=== PATIENT | female | born 1995 | race Caucasian/White ===

== ENCOUNTER 2021-01-29 18:38 | Emergency (ER) | payer OTHER, SELFPAY ==
[2021-01-29 20:11] VITALS: BP 123/64; PULSE 100; RESP 18; TEMP 37.1; O2SAT 98; BMI 23.2
[2021-01-29 21:42] LABS: COVID-19 Test Negative (Negative)
--- NOTE | 2021-01-29 21:59 | ED.GENADULT ---
HPI - General Adult General Chief complaint: Upper Respiratory Symptoms Stated complaint: headache Time Seen by Provider: 01/29/21 21:31 Source: patient Mode of arrival: ambulatory History of Present Illness HPI narrative: 25-year-old female with history of asthma presents with cough, congestion, subjective fevers, negative COVID swab yesterday, body aches, nausea, as well as urinary burning. Patient states that she does not believe in getting the COVID-19 vaccine and that she has recently visited her grandmother who is known to have COVID-19. Related Data Allergies Allergy/AdvReac Type Severity Reaction Status Date / Time aspirin Allergy Anaphylaxis Verified 01/29/21 20:11 peanut Allergy Rash Verified 01/29/21 20:11 Review of Systems Review of Systems: Pertinent positives and negatives as stated in HPI 10 point review of systems is otherwise negative. PMFSH Past Medical History Source: nursing notes reviewed Medical History Asthma Social History Social History Advance Directives: No Physical Exam Vital Signs: Vital Signs: Last Vital Signs Temp 98.8 F 01/29/21 20:11 Pulse 100 01/29/21 20:11 Resp 18 01/29/21 20:11 BP 123/64 01/29/21 20:11 Pulse Ox 98 01/29/21 20:11 Body Mass Index 23.2 VITAL SIGNS: Reviewed. GENERAL: Well developed, well nourished, in no acute distress. HEAD: Normocephalic/atraumatic EYES: PERRLA, EOMI NOSE: Nasal congestion OROPHARYNX: no oral lesions noted, posterior pharynx clear and non-erythematous without noted tonsillar enlargement/erythema/exudates NECK: Supple, no adenopathy LUNGS: Normal breath sounds, no wheezing noted. No adventitious sounds or accessory muscle use. SpO2<98> CARDIOVASCULAR: Regular rate and rhythm without noted murmurs, no JVD or lower extremity edema. ABDOMEN: Soft, non-tender, non-distended with bowel sounds. NEUROLOGIC: Alert and oriented x 4. Strength and sensation to light touch were grossly intact x 4. Course Course Course Narrative: This is a 25-year-old female with history and clinical presentation most consistent with seasonal allergies, nasal congestion as well as sinusitis and patient is noted to be tolerating oral intake currently and on review of investigations is negative for COVID-19. Review of all investigations negative for acute findings, patient is tolerating oral intake, all results were discussed with patient at bedside. Patient was discharged home in stable condition with instructions for allergy medication as well as [id number] Tylenol/ibuprofen for additional symptom relief. Medical Decision Making Lab Data Labs: Lab Results 01/29/21 01/29/21 01/29/21 Range/Units 21:17 22:26 22:26 Urine Color YELLOW Urine Appearance CLEAR Urine pH 6.5 (5.0-8.0) Ur Specific [place] 1.010 (1.005-1.025) Urine Protein NEG (NEG-TRACE) MG/DL Urine Glucose (UA) NEG (NEG) MG/DL Urine Ketones NEG (NEG) MG/DL Urine Blood NEG (NEG) Urine Nitrite NEG (NEG) Ur Leukocyte Esterase NEG (NEG) Urine Test NEGATIVE (NEGATIVE) COVID-19 (GABINO) Negative (Negative) COVID-19 Clin Com See Note Discharge Plan Discharge Clinical Impression: Acute seasonal allergic rhinitis, Viral syndrome Patient Disposition: Home, Self-Care Instructions: Viral Syndrome (ED), Allergic Rhinitis (ED), Postnasal Drip (DC), Fluticasone (Into the nose), Loratadine (By mouth) Additional Instructions: 1. Se recomienda comenzar con marjorie combinaci?n de Claritin (loratadina) de venta laila con Flonase para el control de las alergias estacionales. 2. Tambi?n recomiende el uso de Tylenol / ibuprofeno de venta laila seg?n sea necesario para el dolor de garganta, jean pierre corporales, temperaturas superiores a 100,4?C. 3. Jesse un seguimiento con pederson proveedor de atenci?n primaria llamando al consultorio por la ma?garima y estableciendo marjorie krystyna para marjorie reevaluaci?n. Regrese a la aurea de emergencias por cualquier empeoramiento brayan de rehan s?ntomas. Referrals: Physician,Unknown [Primary Care Provider] - 2 days Print Language: Tajik
[2021-01-29 22:35] LABS: Glucose Urine UA NEG (NEG); Leukocyte Esterase Urine NEG (NEG); Nitrite Urine NEG (NEG); PH 6.5 (5.0-8.0); Urine Blood NEG (NEG); Urine Ketones NEG (NEG); Urine Protein NEG (NEG-TRACE)
[2021-01-29 22:40] LABS: Appearance Urine CLEAR; Color Urine YELLOW; UPreg QC Valid YES; Urine Pregnancy NEGATIVE (NEGATIVE)
[2021-01-29] MEDS: Acetaminophen 325 MG TABLET 975 MG PO (22:51)
== END 2021-01-29 23:32 | disposition home or self-care (01) ==
PROVIDERS: Emergency Provider Student in an Organized Health Care Education/Training Program
DX: B34.9 Viral infection, unspecified (principal); Z20.822 Contact with and (suspected) exposure to COVID-19; J30.9 Allergic rhinitis, unspecified; R51.9 Headache, unspecified
CPT/HCPCS: 36415; 81003; 81025; 87635; 99283; 99284

== ENCOUNTER 2022-02-09 10:10 | Emergency (ER) | payer OTHER, SELFPAY ==
--- NOTE | ~2022-02-09 | XR_ITS ---
EXAMINATION: XR FINGER, LEFT CLINICAL INFORMATION: Slammed fingers in door with pain in index finger COMPARISON: Left finger TECHNIQUE: Three views of the left index. FINDINGS: There is soft tissue laceration along the distal index finger without any fracture or dislocation. Rest of the left hand and left fingers and appears unremarkable. The soft tissues are normal. XR/XR finger LT min 2V IMPRESSION: Soft tissue laceration distal index finger without acute fracture or dislocation.
[2022-02-09 10:41] VITALS: BP 107/60; PULSE 75; RESP 16; TEMP 36.9; O2SAT 98; BMI 26.0
[2022-02-09] MEDS: Ibuprofen 800 MG TABLET PO (11:06)
--- NOTE | 2022-02-09 11:17 | ED_ITS ---
HPI - Extremity Injury (Upper) General Chief Complaint: Extremity Injury, Upper Stated Complaint: slammed finger in door missing nail Time Seen by Provider: 02/09/22 10:16 Source: patient and family Mode of arrival: ambulatory Limitations: language barrier ( Swedish-speaking) History of Present Illness HPI narrative: 26-year-old female presenting to the ED with complaints of left index finger at the distal aspect pain and her nail broke off partially after she accidentally jammed her finger in a door prior to arrival. She reports she is up-to-date on tetanus. She denies any paresthesias or any other injuries complaints or concerns at this time. 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) Other Extremity Injury: left: fingers (index) Other injuries: none Place: home Severity: moderate Relieving factors: none Exacerbating factors: movement of extremity ( and palpation) Context: crush Associated symptoms: denies other symptoms Treatments prior to arrival: bandage Related Data Previous Rx's Medication Instructions Recorded cephalexin 500 mg capsule 500 mg PO Q6H 10 days #40 caps 02/09/22 ibuprofen 800 mg tablet 800 mg PO Q8H PRN pain #14 tabs 02/09/22 Allergies Allergy/AdvReac Type Severity Reaction Status Date / Time aspirin Allergy Anaphylaxis Verified 01/29/21 20:11 peanut Allergy Rash Verified 01/29/21 20:11 Review of Systems Review of Systems: Constitutional : No Weight loss, No Fever, No Chills, No Night Sweats, No Fatigue, No Malaise ENT/Mouth : No Hearing loss, No Ear Pain, No Nasal Congestion, No Sinus Pain, No Hoarseness, No sore throat, No Rhinorrhea, No Swallowing Difficulty Eyes: No Eye Pain, No Swelling, No Redness, No Foreign Body, No Discharge, No Vision Changes Cardiovascular : No Chest Pain, No SOB, No Dyspnea on Exertion, No Orthopnea, No Edema, No Palpitations Respiratory : No Cough, No Sputum, No Wheezing, No Smoke Exposure, No Dyspnea Gastrointestinal : No Nausea, No Vomiting, No Diarrhea, No Constipation, No abdominal Pain, No Hematochezia, No Melena Genitourinary : no irregular bleeding, No Dysuria, No Urinary Frequency, No Hematuria, No Urinary Incontinence, No Urgency, No Flank Pain, No Urinary Flow Changes, No Hesitancy Musculoskeletal : + left index finger joint pain With partial nail avulsion, No Myalgias, No Joint Swelling Skin : No Skin Lesions, No rash Neuro : No Weakness, No Numbness, No Paresthesias, No Loss of Consciousness, No Dizziness, No Headache Psych : No Anxiety/Panic, No Depression, No SI/HI/AH/VH, No Social Issues, Heme/Lymph: No Bruising, No Bleeding,No Lymphadenopathy Endocrine : No Polyuria, No Polydipsia, No Temperature Intolerance Yes all other systems are reviewed and are negative [facility] Past Medical History Attestation statement: The following information was validated with the patient. Source: old records reviewed and nursing notes reviewed Medical History Asthma Social History Social History Advance Directives: No Advance Directives Information Provided: No Physical Exam Vital Signs: Vital Signs: Last Vital Signs Temp 98.4 F 02/09/22 10:41 Pulse 75 02/09/22 10:41 Resp 16 02/09/22 10:41 BP 107/60 02/09/22 10:41 Pulse Ox 98 02/09/22 10:41 O2 Del Method 02/09/22 10:41 BMI result Body Mass Index 26.0 vital signs have been reviewed as normal and appeared to be correct. Blood pressure normal Heart rate normal. Respiration rate normal. Temperature normal. Oxygen saturation normal. Appearance: Alert. Oriented X3. No acute distress. Head: Normal external exam. Normocephalic. Atraumatic. Eyes: PERRLA. EOMI. Conjunctiva and sclera normal. Eyelids normal. ENT: Pharynx normal. Uvula midline. Moist mucous membranes. Neck: Normal inspection. Neck supple. FROM. CVS: Normal heart rate and rhythm. Respiratory: No respiratory distress. Painless inspiration. Skin: Skin warm and dry. Normal skin color. Normal skin turgor. No rashes/lesions/lacerations noted. Extremities: to left index finger patient has tenderness palpation to the distal aspect of the finger/ tip with a partial nail avulsion. Nail bed is intact. No active bleeding or foreign bodies noted. No lacerations noted. No obvious ligamentous or tendon injury noted. No nerve injury noted. She has full range of motion of all fingers. Otherwise all other extremities exhibit normal range of motion nontender. Neuro: Oriented X 3. No motor deficit. No sensory deficit. Reflexes normal. Normal steady gait. No focal neuro deficits noted. Vascular: + radial pulses/+ 2 distal pedal pulses/+2 dorsalis pedis b/l. Normal cap refill. No cyanosis noted to upper extremity nails and lower extremity toes nails. Course Course Course Narrative: X-ray negative for fractures or any other acute processes. Will treat symptomatically with antibiotics and ibuprofen I also placed bacitracin after I cleaned the partial nail avulsion and place the non adherent dressing instructions return if any new or worsening symptoms follow up with primary care provider. Patient understands agrees with this plan. MDM - Extremity Injury (Upper) Medical Records Attestation: I reviewed the patient's medical records. Imaging Data Left index finger x-ray: Attestation: I personally reviewed and interpreted this imaging study as follows: Radiologist's impression: Dr. Corbett send all wet reading due to our PACS system is down and he reported that soft tissue swelling of index finger no fracture noted. Discharge Plan Discharge Clinical Impression: Sprain of left index finger, Nail avulsion, finger Patient Disposition: Home, Self-Care Instructions: Jammed Finger (ED), Finger Sprain (ED), Nail Avulsion (ED) Prescriptions: New cephalexin 500 mg capsule 500 mg PO Q6H 10 Days Qty: 40 0RF ibuprofen 800 mg tablet 800 mg PO Q8H PRN (Reason: pain) Qty: 14 0RF Referrals: Physician,Unknown J [Primary Care Provider] - 2 days (your pcp)
== END 2022-02-09 11:30 | disposition home or self-care (01) ==
PROVIDERS: Emergency Provider Emergency Medicine
DX: S63.611A Unspecified sprain of left index finger, initial encounter (principal); S61.311A Laceration without foreign body of left index finger with damage to nail, initial encounter; W23.1XXA Caught, crushed, jammed, or pinched between stationary objects, initial encounter; Y93.89 Activity, other specified; Y92.810 Car as the place of occurrence of the external cause; Y99.9 Unspecified external cause status
CPT/HCPCS: 73140; 99283

== ENCOUNTER 2022-02-20 12:47 | Emergency (ER) | payer OTHER, SELFPAY ==
[2022-02-20 13:01] VITALS: BP 104/64; PULSE 84; RESP 18; TEMP 37.2; O2SAT 100; BMI 25.9
--- NOTE | 2022-02-20 13:46 | ED_ITS ---
HPI - General Adult General Chief complaint: Skin/Abscess/Foreign Body Stated complaint: Rash on legs Time Seen by Provider: 02/20/22 13:46 Source: patient Mode of arrival: ambulatory Limitations: no limitations History of Present Illness HPI narrative: Patient is a 26 year old female presenting to the emergency department today with a rash on both of her legs that itches. Patient states that a few days ago, she was bit by mosquitoes and has been itching ever since. Patient denies any dizziness, lightheadedness, abdominal pain, nausea, vomiting, fever, chills, blurry vision, double vision, loss of vision, chest pain, difficulty breathing, shortness of breath, back pain, night sweats, pain with urination, increased urinary frequency, increased urinary urgency, blood in her urine or stool, synco pe or a near syncopal episode, recent trauma or falls, bowel incontinence, bladder incontinence, bowel retention, bladder retention, or any other complaints at this time. Onset (ago): day(s) Location: left, right and lower extremity Radiation: non-radiation Severity: mild Severity scale (1-10): 2 Pain Consistency: constant Relieving factors: none Exacerbating factors: none Associated symptoms: rash Treatments prior to arrival: none Related Data Previous Rx's Medication Instructions Recorded cephalexin 500 mg capsule 500 mg PO Q6H 10 days #40 caps 02/09/22 ibuprofen 800 mg tablet 800 mg PO Q8H PRN pain #14 tabs 02/09/22 prednisone 20 mg tablet 20 mg PO DAILY 12 days #26 tabs 02/20/22 Allergies Allergy/AdvReac Type Severity Reaction Status Date / Time aspirin Allergy Anaphylaxis Verified 01/29/21 20:11 peanut Allergy Rash Verified 01/29/21 20:11 Review of Systems Constitutional: Constitutional: Reports no additional constitutional compla ints, Denies chills, Denies fever(s) and Denies night sweats Eyes: Eyes: Reports no additional eye complaints, Denies blurry vision, Denies change in vision, Denies diplopia, Denies eye discharge, Denies loss of vision and Denies eye pain ENT: Denies dizziness Cardiovascular: Cardiovascular: Reports no additional cardiovascular complaints, Denies chest pain, Denies lightheadedness, Denies Loss of Consciousness and Denies dyspnea Respiratory: Respiratory: Reports no additional respiratory complaints and Denies dyspnea Gastrointestinal: Gastrointestinal: Reports no additional gastrointestinal complaints, Denies abdominal pain, Denies melena, Denies hematochezia, Denies change in bowel habits and Denies change in stool character Genitourinary: Genitourinary: Denies hematuria, Denies urinary frequency, Denies dysuria, Denies urinary incontinence, Denies urinary hesitancy and Denies urinary urgency Musculoskeletal: Musculoskeletal: Reports no additional musculoskeletal complaints, Denies numbness and Denies tingling Integumentary/Breasts: Comments: bilateral lower leg rash and itching Neurologic: Denies dizziness, Denies loss of vision, Denies numbness and Denies tingling Psychiatric: Psychiatric: Reports no additional psychiatric complaints Endocrine: Endocrine: Reports no additional endocrine complaints Hematologic/Lymphatic: Hematologic/Lymphatic: Reports no additional hematologic/lymphatic complaints Allergic/Immunologic: Allergic/Immunologic: Reports no additional allergic/immunologic complaints PMFSH Past Medical History Attestation statement: The following information was validated with the patient. Source: old records reviewed Medical History Asthma Social History Social History Advance Directives: Yes Advance Directives Information Provided: Yes Advance Directives on File: No Physical Exam ED Vital Signs: Vital Signs - 24 hr 02/20/22 13:01 Temperature 98.9 F Pulse Rate 84 Respiratory Rate 18 Blood Pressure 104/64 Pulse Oximetry 100 Oxygen Delivery Method Room Air BMI result Body Mass Index 25.9 Const General: cooperative, no acute distress, alert and awake Nutritional Appearance: well nourished Orientation/consciousness: patient oriented x3 Limitations: no limitations [facility] Head: Yes normal to inspection and Yes atraumatic Ears: hearing grossly normal bilaterally and external ears normal General nose exam: Normal external nose present, no nasal discharge noted and no epistaxis Face and sinus: Yes normal facial exam, No abrasion and No laceration Mouth: Normal oral and palatal mucosa present, no drooling and no muffled voice Eyes General: appearance normal, both eyes and all related structures Periorbital: periorbital findings normal Eyelids: Yes eyelids normal Conjunctivae: conjunctivae normal Pupils: Equal, round and reactive pupils present EOM: EOMs intact bilaterally Neck Neck: Yes normal visual inspection, Yes full ROM and Yes no lymphadenopathy Chest Chest palpation & inspection: normal inspection of the chest Resp Effort & Inspection: normal respiratory effort and able to speak in complete sentences Auscultation: clear to auscultation bilaterally Cardio Rate: regular rate Rhythm: regular rhythm GI Inspection: Yes normal to inspection Skin Other: bilateral lower leg erythematous rash with minimal raised areas consistent with insect bites Neuro General: patient oriented x3 and moves all extremities Cranial nerves: Yes Equal, round and reactive pupils present Cognition (Neuro): normal cognition Motor exam (neuro): 5/5 motor strength present throughout Sensory Exam: Normal double simultaneous stimulation for sensation Coordination: [id number] test normal Extrem General: Yes normal to inspection, Yes full ROM and Yes capillary refill normal Psych Appearance: grossly normal Mental Status: mental status grossly normal Affect: normal affect Attitude: cooperative Thought process: Normal thought process present Thought content: Normal thought content present Insight: Good insight present (Psych) Medical Decision Making MDM Narrative Medical decision making narrative: Patient is a 26 year old female presenting to the emergency department today with bilateral lower leg itching. Patient's physical exam was as noted with bilateral lower leg erythema and a few raised areas consistent with insect bites and an overlying dermatitis. I explained my physical exam findings to the patient. I answered all questions asked by the patient. I stressed the importance of the patient taking her medication as prescribed. I stressed the importance of the patient following up with her primary care provider. I stressed the importance of the patient returning to the emergency department immediately if her symptoms were to worsen or if she were to develop any dizziness, shortness of breath, difficulty breathing, chest pain, blurry vision, loss of vision, nausea, vomiting, abdominal pain, fever, chills, back pain, or any other complaints. Patient verbalized agreement and understanding with this treatment plan and discharge. Differential Diagnosis Differential Diagnosis: dermatitis, insect bites Medical Records Medical records reviewed: Yes I reviewed the patient's medical records. Discharge Plan Discharge Clinical Impression: Dermatitis, Insect bite Patient Disposition: Home, Self-Care Instructions: Dermatitis (ED) Additional Instructions: STOP ITCHING IT. Follow up with your primary care provider. Return to the emergency department immediately if your symptoms worsen or if you develop any dizziness, shortness of breath, difficulty breathing, chest pain, blurry vision, loss of vision, nausea, vomiting, abdominal pain, fever, chills, back pain, or any other complaints. Prescriptions: New prednisone 20 mg tablet 20 mg PO DAILY 12 Days Qty: 26 0RF Rx Instructions: Take 3 tablets for 5 days THEN; Take 2 tablets for 4 days THEN; Take 1 tablet for 3 days No Action cephalexin 500 mg capsule 500 mg PO Q6H 10 Days Qty: 40 0RF ibuprofen 800 mg tablet 800 mg PO Q8H PRN (Reason: pain) Qty: 14 0RF Referrals: [facility] [place] [facility] [Provider Group] (Call to establish and follow up with a primary care provider. If you already have one, please follow up with them. ) [facility] [place] Primary Care, Eunice [Provider Group] (Call to establish and follow up with a primary care provider. If you already have one, please follow up with them. ) [facility] [place] Primary Care,Héctor [Provider Group] (Call to establish and follow up with a primary care provider. If you already have one, please follow up with them. ) Stand Alone Forms: Work/School Release Print Language: Persian
== END 2022-02-20 14:23 | disposition home or self-care (01) ==
PROVIDERS: Emergency Provider Emergency Medicine Emergency Medical Services
DX: L30.9 Dermatitis, unspecified (principal); R21 Rash and other nonspecific skin eruption; Z79.899 Other long term (current) drug therapy
CPT/HCPCS: 99283

== ENCOUNTER 2024-08-07 13:21 | Emergency (ER) | payer OTHER, SELFPAY ==
--- NOTE | ~2024-08-07 | XR_ITS ---
EXAMINATION: XR LUMBOSACRAL SPINE CLINICAL INFORMATION: Pain. COMPARISON: None available. TECHNIQUE: Three views of the lumbosacral spine. FINDINGS: The vertebral bodies and posterior elements are normal. The disc spaces are preserved and the vertebral alignment is normal. IUD within the pelvis. The paraspinal soft tissues are otherwise unremarkable. XR/XR lumbar spine 2-3V IMPRESSION: Unremarkable examination. Electronically signed by: Cameron Villatoro MD 08/07/2024 03:56 PM TIP
--- NOTE | ~2024-08-07 | XR_ITS ---
EXAMINATION: XR THORACIC SPINE CLINICAL INFORMATION: back pain COMPARISON: None available. TECHNIQUE: 3 views of the thoracic spine were obtained. FINDINGS: There is no fracture or bone destruction seen and the vertebral alignment is normal. There is no disc space narrowing. There is no abnormality of the paraspinal soft tissues. Visualized lungs are clear. XR/XR thoracic spine 3V IMPRESSION: Normal thoracic spine. Electronically signed by: Macey Seo DO 08/07/2024 04:56 PM TIP
[2024-08-07 13:32] VITALS: BP 103/62; PULSE 80; RESP 18; TEMP 36.4; O2SAT 100; BMI 26.7
--- NOTE | 2024-08-07 13:32 | ED_ITS ---
HPI - General Adult General Chief complaint: Back Pain/Injury Stated complaint: Work injury Time Seen by Provider: 08/07/24 15:01 Related Data Previous Rx's ?Medication ?Instructions ?Recorded cephalexin 500 mg capsule 500 mg PO Q6H 10 days #40 caps 02/09/22 ibuprofen 800 mg tablet 800 mg PO Q8H PRN pain #14 tabs 02/09/22 prednisone 20 mg tablet 20 mg PO DAILY 12 days #26 tabs 02/20/22 Allergies Allergy/AdvReac Type Severity Reaction Status Date / Time aspirin Allergy Anaphylaxis Verified 08/07/24 13:34 peanut Allergy Rash Verified 08/07/24 13:34 [facility] Past Medical History Medical History Asthma Social History Social History Advance Directives: No Advance Directives Information Provided: Yes Physical Exam ED Vital Signs: Vital Signs - 24 hr 08/07/24 13:32 08/07/24 16:27 Temperature 97.6 F 97.8 F Pulse Rate 80 65 Respiratory Rate 18 16 Blood Pressure 103/62 113/56 L Pulse Oximetry 100 100 Oxygen Delivery Method Room Air Room Air BMI result Body Mass Index 26.7 Course Course Course Narrative: This is an RME: Additional HPI, ROS, PE not included below will be deferred to primary provider. RME assessment and note performed by: Salima Douglass PA-C This is a [id number]-female who presents to the ER with complaints of back pain and right shoulder pain. 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 She did not wear her back brace at work. Tenderness palpation along the T and L-spine with spasm noted. Plan: X-ray t spine and L-spine Medications Administered Discontinued Medications Generic Name Dose Route Start Last Admin Trade Name Freq PRN Reason Stop Dose Admin Cyclobenzaprine HCl 10 mg 08/07/24 15:16 08/07/24 15:25 Cyclobenzaprine Hcl 10 Mg Tablet PO 08/07/24 15:17 10 mg ONCE ONE Administration Ketorolac Tromethamine 30 mg 08/07/24 15:16 08/07/24 15:25 Ketorolac Tromethamine 30 Mg/Ml Vial IM 08/07/24 15:17 30 mg ONCE ONE Administration Discharge Plan Discharge Prescriptions: No Action cephalexin 500 mg capsule 500 mg PO Q6H 10 Days Qty: 40 0RF ibuprofen 800 mg tablet 800 mg PO Q8H PRN (Reason: pain) Qty: 14 0RF prednisone 20 mg tablet 20 mg PO DAILY 12 Days Qty: 26 0RF Rx Instructions: Take 3 tablets for 5 days THEN; Take 2 tablets for 4 days THEN; Take 1 tablet for 3 days Print Language: Palestinian
--- NOTE | 2024-08-07 15:17 | ED.GENADULT ---
HPI - General Adult General Chief complaint: Back Pain/Injury Stated complaint: Work injury Time Seen by Provider: 08/07/24 15:01 Source: patient Mode of arrival: ambulatory Limitations: no limitations History of Present Illness ED Provider: Tila CAMPOS narrative: Patient is a 28-year-old female presenting to the emergency department with complaint of lower back pain since lifting 5 gallon buckets at work yesterday. States that she has to lift them onto pallets, over her head. Denies fall or other trauma. States was not wearing her back brace at the time. Pain was too severe for her to stand/continue working. Denies radiation of pain to lower extremities. Denies saddle anesthesia or bowel or bladder incontinence. Denies fevers. MD complaint: back pain Onset (ago): day(s) Location: back Radiation: non-radiation Severity: severe Quality: aching Pain Consistency: constant Relieving factors: rest Exacerbating factors: movement Related Data Previous Rx's ?Medication ?Instructions ?Recorded cephalexin 500 mg capsule 500 mg PO Q6H 10 days #40 caps 02/09/22 ibuprofen 800 mg tablet 800 mg PO Q8H PRN pain #14 tabs 02/09/22 prednisone 20 mg tablet 20 mg PO DAILY 12 days #26 tabs 02/20/22 cyclobenzaprine 10 mg tablet 10 mg PO TID PRN muscle spasm #14 08/07/24 tabs lidocaine 5 % topical patch 1 patch topical DAILY #15 ea 08/07/24 Allergies Allergy/AdvReac Type Severity Reaction Status Date / Time aspirin Allergy Anaphylaxis Verified 08/07/24 13:34 peanut Allergy Rash Verified 08/07/24 13:34 Review of Systems Review of Systems: As per HPI Yes all other systems are reviewed and are negative [facility] Past Medical History Medical History Asthma Social History Social History Advance Directives: No Advance Directives Information Provided: Yes Physical Exam ED Vital Signs: Vital Signs - 24 hr 08/07/24 13:32 08/07/24 16:27 Temperature 97.6 F 97.8 F Pulse Rate 80 65 Respiratory Rate 18 16 Blood Pressure 103/62 113/56 L Pulse Oximetry 100 100 Oxygen Delivery Method Room Air Room Air BMI result Body Mass Index 26.7 Vital signs have been reviewed and appear to be correct. Blood pressure normal. Heart rate normal. Respiratory rate normal. Temperature normal. Oxygen saturation normal. Back/Spine/Pelvis Thoracic/Lumbar Spine: thoracic and lumbar spine normal to inspection, thoraco-lumbar ROM normal, straight leg raise negative bilaterally, pain with thoraco-lumbar ROM, paraspinal muscle tenderness bilaterally in the lower thoracic and in the upper lumbar, No thoracic spinal tenderness and No lumbar spinal tenderness Medications Administered Discontinued Medications Generic Name Dose Route Start Last Admin Trade Name Ewelina PRN Reason Stop Dose Admin Cyclobenzaprine HCl 10 mg 08/07/24 15:16 08/07/24 15:25 Cyclobenzaprine Hcl 10 Mg Tablet PO 08/07/24 15:17 10 mg ONCE ONE Administration Ketorolac Tromethamine 30 mg 08/07/24 15:16 08/07/24 15:25 Ketorolac Tromethamine 30 Mg/Ml Vial IM 08/07/24 15:17 30 mg ONCE ONE Administration Medical Decision Making Medical Decision Making [facility] Narrative: Patient is a 28-year-old female presenting to the emergency department with complaint of lower back pain since lifting 5 gallon buckets at work yesterday. On exam patient is awake, A+Ox3, VS WNL, afebrile, normal neurological exam without focal deficits, physical exam findings as above. Given reported symptoms and physical exam findings, initial differential includes lumbar strain, lumbar radiculopathy, degenerative disc disease, disc herniation, spinal stenosis, spondylosis. Less likely vertebral fracture. Do not suspect malignancy/mass, SEA, cauda equina/cord compression. X-rays notable for no evidence of fracture, subluxation or other acute abnormality. My interpretation is in agreement with the radiologist's interpretation. Results discussed with patient and all questions answered. Will send prescription for muscle relaxer and topical lidocaine patches. Advised patient to perform gentle stretching exercises daily. Follow up with PCP. Return precautions discussed at bedside. Patient verbalized understanding of and agreement with plan. Differential Diagnosis Differential Diagnoses: The differential diagnosis associated with the presentation includes as per [place] Independent Interpretation I performed an independent interpretation of an: Plain X-Ray Interpretation: X-rays notable for no evidence of fracture, subluxation or other acute abnormality. Radiology Impression Discussion of test interpretation with radiology: I have reviewed the radiologist's reading. Radiologist Impression: XR/XR lumbar spine 2-3V IMPRESSION: Unremarkable examination. XR/XR thoracic spine 3V IMPRESSION: Normal thoracic spine. External Record Review External record reviewed: Inpatient record, Office record and Outpatient record Prescription Management I considered prescription management with: Pain Medication and Other Discharge Plan Discharge Clinical Impression: Strain of lumbar region, Thoracic back pain Patient Disposition: Home, Self-Care Instructions: Low Back Strain (ED), Thoracic Pain (ED) Additional Instructions: You were evaluated in the emergency department today for back pain. Your evaluation did not show signs of medical conditions requiring emergent intervention at this time. We recommended that you use ibuprofen or Tylenol per package directions every 6 hours as needed for pain. If necessary, you can alternate these medications so that you take one medication every 3 hours. For instance, at noon take ibuprofen, then at 3:00 p.m. take Tylenol, then at 6:00 p.m. take ibuprofen. You have been prescribed a muscle relaxer which you may take every 8 hours as needed for spasms. You have been prescribed 5% topical lidocaine patches which you can wear for up to 12 hours in a 24 hour period. Do not apply heat directly over the patches. Please schedule an appointment for follow-up with your primary care physician this week for further evaluation of your symptoms. Return to the emergency department if you experience worsening back pain, difficulty walking, fevers, numbness, tingling, incontinence, groin numbness or tingling, or any other concerning symptoms. [facility] [address] [place] [address] Prescriptions: New cyclobenzaprine 10 mg tablet 10 mg PO TID PRN (Reason: muscle spasm) Qty: 14 0RF lidocaine 5 % adhesive patch,medicated 1 patch topical DAILY Qty: 15 0RF Rx Instructions: leave on most painful area for up to 12 hrs No Action cephalexin 500 mg capsule 500 mg PO Q6H 10 Days Qty: 40 0RF ibuprofen 800 mg tablet 800 mg PO Q8H PRN (Reason: pain) Qty: 14 0RF prednisone 20 mg tablet 20 mg PO DAILY 12 Days Qty: 26 0RF Rx Instructions: Take 3 tablets for 5 days THEN; Take 2 tablets for 4 days THEN; Take 1 tablet for 3 days Stand Alone Forms: Work/School Release Print Language: [place]
[2024-08-07] MEDS: Cyclobenzaprine HCl 10 MG TABLET PO (15:25)
[2024-08-07] MEDS: Ketorolac Tromethamine 30 MG/ML VIAL IM (15:25)
[2024-08-07 16:27] VITALS: BP 113/56; PULSE 65; RESP 16; TEMP 36.6; O2SAT 100
[2024-08-07 17:59] VITALS: BP 113/56; PULSE 65; RESP 16; TEMP 36.6; O2SAT 100
== END 2024-08-07 18:01 | disposition home or self-care (01) ==
PROVIDERS: Emergency Provider Emergency Medicine
DX: S39.012A Strain of muscle, fascia and tendon of lower back, initial encounter (principal); X50.0XXA Overexertion from strenuous movement or load, initial encounter; Y93.9 Activity, unspecified; Y92.9 Unspecified place or not applicable; Y99.9 Unspecified external cause status; M54.6 Pain in thoracic spine
CPT/HCPCS: 72072; 72100; 96372; 99283; 99284; J1885